=== PATIENT | female | born 1985 | race Caucasian/White ===

== ENCOUNTER 2018-10-30 04:00 | Inpatient (IN) ==
[2018-10-30] MEDS ORDERED: Metoclopramide 10 MG/2 ML VIAL IVP PRN (04:38)
[2018-10-30] MEDS ORDERED: Famotidine 20 MG/2 ML VIAL IVP PRN (04:38)
[2018-10-30] MEDS ORDERED: *HR* Nalbuphine 10 MG/ML AMPUL IVP PRN (04:38)
[2018-10-30] MEDS ORDERED: Naloxone 0.4 MG/ML INJ IVP PRN ×2 (04:38→10:43)
[2018-10-30] MEDS ORDERED: Ringers Solution, Lactated 1,000 ML IVC SCH (04:45)
[2018-10-30] MEDS ORDERED: Penicillin G Potassium 5,000,000 UNIT in 0.9 % Sodium Chloride Mini Bag 100 ML IVPB ONE (05:28)
[2018-10-30 05:30] LABS: White Blood Count 7.7 K/mcL (4.3-11.1)
[2018-10-30 05:31] LABS: Basophils # 0.1 K/mcL (0.0-0.2); Basophils % 0.7 %; Eosinophils # 0.2 K/mcL (0.0-0.6); Eosinophils % 2.7 %; Hemoglobin 11.4 g/dL (11.5-15.4); Immature Granulocytes % 0.5 % (0-4); Lymphocytes # 1.9 K/mcL (0.6-4.6); Lymphocytes % 24.5 %; Mean Corpuscular HGB Conc 32.6 g/dL (31.6-35.5); Mean Corpuscular Hemoglobin 26.3 pg (28.0-33.3); Mean Corpuscular Volume 80.6 fL (83.0-100.0); Mean Platelet Volume 11.7 fL (9.4-12.4); Monocytes # 0.6 K/mcL (0.0-1.3); Neutrophils # 4.9 K/mcL (1.6-8.9); Platelet Count 216 K/mcL (140-400); Red Blood Count 4.34 M/mcL (3.82-4.97); Red Cell Distribution Width 14.2 % (11.5-14.5); Segmented Neutrophils % 63.6 %
[2018-10-30 06:11] LABS: Amphetamine Screen,Urine Negative ng/mL (Cutoff=1000); Barbiturate Screen,Urine Negative ng/mL (Cutoff=200); Benzodiazepines Screen,Urine Negative ng/mL (Cutoff=200); Cannabinoid Screen,Urine Positive ng/mL (Cutoff = 50); Cocaine Screen,Urine Negative ng/mL (Cutoff= 300); Opiate Screen,Urine Negative ng/mL (Cutoff=300); Phencyclidine Screen,Urine Negative ng/mL (Cutoff=25)
[2018-10-30] MEDS ORDERED: miSOPROStol 25 MCG TABLET VG SCH (08:00)
--- NOTE | 2018-10-30 08:15 | OB/GYN History & Physical ---
Date of Encounter: 10/30/18 Time of Encounter: 08:11 Assessment and Plan (1) 39 weeks gestation of Current visit: Yes Status: Acute 33-year-old at 39+2 weeks, Elective induction of labor, Strep pyogenes in GBS culture/O+ Plan: heart tracin/motor variability/positive accelerations, no decelerations, Cervix checked and 1/70%/-3 Cytotec was given at 5:40 AM this morning, She wants an early epidural because she says she's missed epidural in her previous pregnancies so at her next dose of Cytotec, we will start epidural, Before we proceed fully, I want her to have the second dose of penicillin running, Anticipate History of Present Illness HPI: Ms. Chadwick is a 33 year old female @ 39+2 weeks who presents to labor and delivery for induction of labor. She does not report leaking of fluid vaginal bleeding or contractions, feels good movement. history unco mplicated. 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 GBS culture showed strep pyogenes. Past Med Surg Social Fam HX - Past Medical History Medical history: no medical history - Past Surgical History Surgical History: other Additional surgical history: surgery on legs bilat. - Social History Smoking Status: Former smoker Smokeless Tobacco Status: No Alcohol use: none Drug use: none Obstetrical History - Pregnancies : 6 Para: 5 Medications and Allergies Ferrous Sulfate [Iron] 1 tab PO TID 10/30/18 [History] Tablet 1 tab PO DAILY 10/30/18 [History] Subutex 16 mg PO DAILY 10/30/18 [History] Allergy/AdvReac Type Severity Reaction Status Date / Time No Known Allergies Allergy Verified 10/30/18 05:14 Review of System OB All systems PM: reviewed and no additional remarkable complaints except as stated Exam - Constitutional Constitutional: no acute distress - HEENT HEENT: PERRL - Neck Neck exam: full ROM - Lungs Respiratory exam: CTAB - Cardiovascular Cardiovascular exam: RRR - Abdomen Abdomen: Present: gravid Results Result Diagrams: 10/30/18 05:00 Abnormal lab results Hgb 11.4 g/dL (11.5-15.4) L 10/30/18 05:00 Hct 35.0 % (35.3-44.9) L 10/30/18 05:00 MCV 80.6 fL (83.0-100.0) L 10/30/18 05:00 MCH 26.3 pg (28.0-33.3) L 10/30/18 05:00 Ur Buprenorphine Scrn Positive ng/mL (Cutoff=5) H 10/30/18 05:00 U Marijuana (THC) Screen Positive ng/mL (Cutoff = 50) H 10/30/18 05:00 All other labs normal. - VTE Reasons for not Prescribing Prophylaxis: Treatment not Indicated - Low risk for VTE
[2018-10-30] MEDS: Penicillin G Potassium 2,500,000 UNIT in 0.9 % Sodium Chloride 100 ML IVPB SCH ×3 (10:28→18:18)
[2018-10-30] MEDS ORDERED: Ropivacaine/PF 0.2% 20 ML VIAL EP ONE (10:43)
[2018-10-30] MEDS ORDERED: *HR* FentaNYL (PF) 100 MCG/2 ML VIAL EP ONE (10:43)
[2018-10-30] MEDS ORDERED: Ondansetron 4 MG/2 ML VIAL IVP PRN (10:43)
[2018-10-30] MEDS ORDERED: EPHEDrine 50 MG/ML VIAL IVP PRN (10:43)
[2018-10-30] MEDS ORDERED: Epidural Premix (fent/bupiv) 110 ML EP SCH (10:45)
--- NOTE | 2018-10-30 10:45 | OB Labor Progress Note ---
Date of Encounter: 10/30/18 Time of Encounter: 10:43 Labor Progress Note - Subjective Subjective: Patient coping well with rare contractions. - Cervix Cervix: /70/-3 - Heart Tones Heart Tones: FHR 120 bpm, Category I tracing - [place]: Irregular - Interventions Interventions: SVE Double cervical padilla balloon inserted after information discussed with patient and she agreed to proceed. Double padilla balloon inserted without difficulty. 60mL sterile water instilled into uterine balloon, 40 mL instilled into vaginal balloon. Patient tolerated without difficulty. 25 mcg Cytotec inserted into posterior fornix of vagina. - Plan Physician notified: Yes Physician notified details: Dr. Ye informed of double cervical balloon placement Plan: Epidural when patient desires REcheck cervix in 4 hours if padilla still in place. Once patient is comfortable with epidural, inflate both balloon to 80 mL AROM when appropriate
--- NOTE | 2018-10-30 10:49 | Anesthesia Evaluation PreOp ---
Date of Encounter: 10/30/18 Time of Encounter: 10:30 - Past History Planned Operation: AJ Cardiac History: Denies any Significant Hx Pulmonary History: Denies Any Significant HX RAILROAD CONDUCTOR History: Denies Any Significant HX Other Medical History: Other (Hepatitis C, Hx drug abuse, currently treated with subutex for 2 years) Anesthesia History: No Prior Anesthetic Complications, Past Anesthesia (Previous epidural x 1, laparoscopy x 2, Left shoulder surgery) Alcohol Use: none Drug use: none Medications and Allergies Ferrous Sulfate [Iron] 1 tab PO TID 10/30/18 [History] Tablet 1 tab PO DAILY 10/30/18 [History] Subutex 16 mg PO DAILY 10/30/18 [History] Allergy/AdvReac Type Severity Reaction Status Date / Time No Known Allergies Allergy Verified 10/30/18 05:14 - Meds/Allergy Pre-op Review Medications Reviewed: Yes Allergies Reviewed: Yes Beta Blockers on Current Med List: No Anesthesia Results - Labs 10/30/18 05:00 Anesthesia Exam BP 132/80 P 78 R 16 T 97.8 Height: 5'3" Weight: 78.0kg NPO (# of Hours): 6 hr solids Pain Scale: 2 Pain Scale Used: Numeric (1 - 10) - HEENT Pupil (Motor): Pupils equal Mallampati: II Teeth: Normal Oral Opening: Greater than 3 - RAILROAD CONDUCTOR LOC: Oriented RAILROAD CONDUCTOR Motor: Normal RUE, Normal LUE, Normal RLE, Normal LLE, Normal Face RAILROAD CONDUCTOR Sensory: Normal: RUE, LUE, RLE, LLE, Face - Cardiac Rhythm: Regular Murmur: None JVD: No Carotid Bruit: No - Pulmonary Breath Sounds: bilateral Clear Respiratory Effort: Symmetrical Anesthesia Assess/Plan ASA Score: 2 Level of consciousness: Cooperative, Oriented, Tranquil Anesthetic Plan: Epidural Autologous Blood: No Monitoring Plan: Standard Monitors Recovery Plan: Other
[2018-10-30] MEDS ORDERED: *HR* FentaNYL (PF) 100 MCG/2 ML VIAL ONE (10:55)
[2018-10-30] MEDS ORDERED: *HR* Phenylephrine 10 MG/ML VIAL ONE (10:56)
[2018-10-30] MEDS ORDERED: Ropivacaine/PF 0.2% 20 ML VIAL ONE (10:56)
--- NOTE | 2018-10-30 11:32 | Anesthesia Procedures ---
Date of Encounter: 10/30/18 Time of Encounter: 11:02 Procedures: Anesthesia - Epidural/Spinal Patient ID/Chart reviewed: Yes Patient examined: Yes OB Eval: Gestational age: 39.2 OB Eval: : 6 OB Eval: Hx Para: 5 OB Eval: Dilated at (cm): 2 OB Eval: Contractions: Non-stressed pattern Consent Obtained: Yes Supplemental Oxygen: None/Room Air Site Prep: Aseptic Technique, Sterile prep and drape, Povidone-Iodine 1% Patient position: upright Local Anesthetic: Lidocaine 1% Amount of Local Anesthetic used: 3 Touhy Needle Gauge: 18 Touhy Needle Depth (cm): 5 Catheter Depth at Skin (cm): 13 Test Dose (1.5% Lido + Epi): Volume given (mls): 3 Test Dose Result: Negative Loading Dose: Fentanyl (mcg): 100 Loading Dose: Other: Ropivicaine 0.2% 5ml, 3ml normal saline Loading Dose Administered: Thru Catheter Infusion Med: 0.125% Bupivacaine w/ 2 mcg/ml Fentanyl Infusion Rate (mls/hr): [address]: Tegaderm, Tape Interspace Used: L3-L4 Loss of Resistance (CHIDI): Yes Blood: No CSF: No Paresthesia: No Procedure: AJ placed 1st pass in upright position. CIHDI achieved with normal saline. Catheter threaded with ease to 13cm at skin. Test dose negative. Pt stated comfort following bolus dose administration. VSS and FHT stable throughout. Vitals + FHT's: 1102 BP 138/89 P 85 R 16 1125 BP 133/57 P 76 R 16
--- NOTE | 2018-10-30 15:37 | OB Labor Progress Note ---
Date of Encounter: 10/30/18 Time of Encounter: 15:36 Labor Progress Note - Subjective Subjective: Patient resting comfortably with epidural in place. - Cervix Cervix: 6/90/-2 - Heart Tones Heart Tones: Category I - [place]: Irregular - Interventions Interventions: SVE AROM for large amount of clear fluid. - Plan Physician notified: Yes Physician notified details: Dr. Ye made aware of AROM and SVE Plan: Continue Pitocin induction Frequent position change with peanut ball. Anticipate
[2018-10-30] MEDS ORDERED: Oxytocin 20 units/ LR 1000 mL 20 UNIT/1,000 ML BAG IVC SCH (17:15)
--- NOTE | 2018-10-30 17:33 | OB Labor Progress Note ---
Date of Encounter: 10/30/18 Time of Encounter: 17:29 Labor Progress Note - Subjective Subjective: Patient is doing well status post epidural - Vital Signs Vital Signs: VSS - Cervix Cervix: 6cm/90%/-1 - Heart Tones Heart Tones: 125/mod kiana/+accels, no decels - [place]: irreg - Interventions Interventions: her cervix is unchanged, will start Pitocin, anticipate
--- NOTE | 2018-10-30 21:07 | OB Labor Progress Note ---
Date of Encounter: 10/30/18 Time of Encounter: 21:00 Labor Progress Note - Subjective Subjective: patient is doing well - Vital Signs Vital Signs: VSS - Cervix Cervix: ant rim, -1 - Heart Tones Heart Tones: 125/moderate variability/+accelerations, no decelerations - [place]: Q1-2 - Interventions Interventions: anticipate , pitocin increased to 6
--- NOTE | 2018-10-30 23:14 | OB/GYN Procedure Note ---
Delivery - Delivery Date: 10/30/18 Provider: Scotty Ye Intrapartum events: none Delivery induction: padilla, misoprostol Delivery augmentation: rupture of membranes Delivery monitor: external FHT, external uterine Anesthesia: epidural Quantitated Blood Loss: 300 - Repair Episiotomy: none Laceration Description: None - Complications Delivery complications: none - Disposition Mom disposition: stable in LDR [place] disposition: stable in LDR - Comments Comments: Ena is a 33-year-old now who delivered a viable male infant at 2245 hrs via vacuum-assisted vaginal delivery due to maternal exhaustion. Nuchal cord 2 reduced, infant delivered ELZBIETA, APGARs 8/8, weight 3665g (8 lbs 1 oz), EBL 300 ml, placenta delivered at 2247 hrs, no lacerations, mother and infant stable
[2018-10-31] MEDS ORDERED: Lanolin 7 G OINT...G. TP PRN (01:57)
[2018-10-31] MEDS ORDERED: Acetaminophen 325 MG TABLET PO PRN (01:57)
[2018-10-31] MEDS ORDERED: Rho Immune Globulin 1,500 UNIT SYRINGE IM PRN (01:57)
[2018-10-31] MEDS ORDERED: Benzocaine/Menthol 56 GM AEROSOL SPRAY TP PRN (01:57)
[2018-10-31] MEDS ORDERED: Oxytocin 20 units/ LR 1000 mL 20 UNIT/1,000 ML BAG IVC SCH (01:57)
[2018-10-31] MEDS: Ibuprofen 600 MG TABLET PO PRN ×3 (04:27→22:21)
--- NOTE | 2018-10-31 09:51 | OB/GYN Progress Note ---
Date of Encounter: 10/31/18 Time of Encounter: 09:48 - Assessment and Plan (1) Vaginal delivery Current Visit: Yes Status: Acute Continue routine care discharge home tomorrow (2) Breast feeding status of mother Current Visit: Yes Status: Acute support prn (3) complicated by subutex maintenance, antepartum Current Visit: Yes Status: Acute maintenance per RX (4) Marijuana abuse Current Visit: Yes Status: Acute cord stat sent Subjective - Subjective Principal diagnosis: day 1 Interval history: Patient is day 1. Patient denies any pain at this time. Patient is breast feeding male . Infant is a 5 day hold. Due to late delivery patient will be discharged home tomorrow. Patient reports: appetite normal, voiding normally, pain well controlled, ambulating normally : doing well, nursing well Objective - Latest Vital Signs Latest vital signs: Vital Signs Temp Pulse Resp BP Pulse Ox 10/31/18 07:30 97.7 F 67 18 99/58 98 10/31/18 04:00 98.0 F 64 17 140/65 98 10/31/18 03:00 98.0 F 66 18 133/75 97 10/31/18 02:00 98.2 F 65 16 145/81 98 Intake and Output 10/30/18 10/31/18 10/31/18 23:59 07:59 15:59 Intake Total 700 / 700 Output Total 350 / 350 Balance 350 / 350 Intake: Oral 700 / 700 Output: Urine 350 / 350 Other: # Voids 1 Weight 75.9 kg Patient Weight 10/31/18 23:59 Weight 75.9 kg - Exam Lungs: bilateral: normal Chest: Normal S1, Normal S2 Extremities: Present: normal Abdomen: Present: normal appearance, soft, gravid Uterus: Present: normal, firm Uterus Position: At Umbilicus, Midline
[2018-10-31] MEDS: *HR* Buprenorphine HCl 8 MG TAB.SUBL SL SCH (10:05)
[2018-10-31] MEDS: Prenatal Vit/FA 1 EACH TABLET PO SCH (10:05)
[2018-11-01 08:12] VITALS: BP 106/69
[2018-11-01] MEDS: Prenatal Vit/FA 1 EACH TABLET PO SCH (08:35)
[2018-11-01] MEDS: *HR* Buprenorphine HCl 8 MG TAB.SUBL SL SCH (08:36)
--- NOTE | 2018-11-01 08:45 | Discharge Summary ---
Date of Encounter: 11/01/18 Time of Encounter: 08:38 - Discharge Diagnosis (1) Vaginal delivery Priority: Primary Status: Acute Comments: S/P Vaginal delivery day 2 Pain is well controlled Lochia is light and without clots VSS Tolerating regular diet, passing flatus Voiding without difficulty Breast feeding Discharge home today - Discharge Medications Prescriptions: New Breast Pump [BREAST PUMP] 1 each .ROUTE AD #1 each Docusate [Colace] 100 mg PO BID #30 capsule Benzocaine/Menthol [place] [Dermoplast [place]] 1 appl TP QID PRN aerosol PRN Reason: See Comments Ferrous Sulfate 325 mg PO DAILY #90 tablet Lanolin [Lansinoh] 1 appl TP TID PRN oint...g. PRN Reason: Sore Nipples Ibuprofen [Motrin] 600 mg PO Q6HR PRN #30 tablet PRN Reason: Cramping Acetaminophen [Tylenol] 650 mg PO Q6HR PRN tablet PRN Reason: Mild Pain Continued Subutex 16 mg PO DAILY Tablet 1 tab PO DAILY Discontinued Ferrous Sulfate [Iron] 1 tab PO TID Home Medications: Tablet 1 tab PO DAILY 10/30/18 [History] Subutex 16 mg PO DAILY 10/30/18 [History] Acetaminophen [Tylenol] 650 mg PO Q6HR PRN tablet 11/01/18 [Rx] Benzocaine/Menthol [place] [Dermoplast [place]] 1 appl TP QID PRN aerosol 11/01/18 [Rx] Breast Pump [BREAST PUMP] 1 each .ROUTE AD #1 each 11/01/18 [Rx] Docusate [Colace] 100 mg PO BID #30 capsule 11/01/18 [Rx] Ferrous Sulfate 325 mg PO DAILY #90 tablet 11/01/18 [Rx] Ibuprofen [Motrin] 600 mg PO Q6HR PRN #30 tablet 11/01/18 [Rx] Lanolin [Lansinoh] 1 appl TP TID PRN oint...g. 11/01/18 [Rx] Allergies/Adverse Reactions: Allergy/AdvReac Type Severity Reaction Status Date / Time No Known Allergies Allergy Verified 10/30/18 05:14 Data Procedures and tests throughout hospitalization: Laboratory Tests 10/30/18 10/30/18 05:00 05:00 WBC 7.7 RBC 4.34 Hgb 11.4 L Hct 35.0 L MCV 80.6 L MCH 26.3 L MCHC 32.6 RDW 14.2 Plt Count 216 MPV 11.7 Immature Gran % 0.5 Seg Neutrophils % 63.6 Lymphocytes % 24.5 Monocytes % 8.0 Eosinophils % 2.7 Basophils % 0.7 Neutrophils # 4.9 Lymphocytes # 1.9 Monocytes # 0.6 Eosinophils # 0.2 Basophils # 0.1 Urine Opiates Screen Negative Ur Buprenorphine Scrn Positive H Ur Barbiturates Screen Negative Ur Phencyclidine Scrn Negative Ur Amphetamines Screen Negative U Benzodiazepines Scrn Negative Urine Cocaine Screen Negative U Marijuana (THC) Screen Positive H Ur Drug Screen Interp See Below Date of admission: 10/30/18 04:34 Primary care physician: Elida Seals Consults: 10/31/18 01:57 Consult to Osteologist [CONS] Routine Comment: Vaginal delivery, consult needed Consult to Power Station Operator [CONS] Routine Reason for SW Consult: Subutex group Discharging clinician: Kathleen Ziegler Anticipated date of discharge: 11/01/18 - Patient Status Disposition: Home, Self-Care Condition: Good Functional capacity at discharge: independent ambulation Overall status at discharge: patient is progressing back to baseline - Discharge Instructions Follow Up With: Elida Seals [Primary Care Provider] - Scotty Ye MD [Partnered Physician] - - Diet and Activity Activity: increase activity as tolerated Diet: regular diet Hospital Course Reason for admission: induction of labor, IUP at term Delivery: Episiotomy: none Laceration: none Other procedures: none complications: none Discharge diagnosis: IUP at term delivered [place] baby: male Time spent discussing smoking cessation with patient: 3 to 10 minutes Time Attestation: Total time spent providing and/or coordinating discharge services: Time Spent: Less than 30 minutes Exam - Constitutional Vitals: Temp Pulse Resp BP Pulse Ox 98.4 F 111 16 106/69 96 11/01/18 08:11 11/01/18 08:11 11/01/18 08:11 11/01/18 08:11 10/31/18 19:40 General appearance IM: cooperative, A&O X 3, pleasant - Respiratory Respiratory exam: Present: CTAB - Cardiovascular Cardiovascular exam IM: Present: RRR, +S1, +S2 - GI/Abdominal GI/Abdominal exam IM: normal bowel sounds, soft - Rectal Rectal exam: deferred - Uterine Tone: Firm Uterus Position: 2 Fingers Below Umbilicus, Midline - Extremities Exam Extremities exam IM: Present: normal capillary refill, normal inspection, radial pulses palpable and symmetrical - Neurological Exam Neurological exam: alert, oriented X3
== END 2018-11-01 17:59 | disposition home or self-care (01) | DRG 560 ==
LOC: 1NENULAB 04:34 → 1NENUOBS 10-31 02:20
PROVIDERS: ADMIT Student in an Organized Health Care Education/Training Program; ATTEND Student in an Organized Health Care Education/Training Program